=== PATIENT | female | born 1965 | race Two or more races ===

== ENCOUNTER 2024-12-22 15:20 | Emergency (ER) | payer MEDICAID, OTHER ==
[~2024-12-22] VITALS: Ht 152.4 cm; Wt 75.0 kg
[2024-12-22 15:25] VITALS: TEMP 98.9
[2024-12-22] MEDS: KETOROLAC TROMETH 60MG/2ML VIAL IM ONE (17:00)
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
[2024-12-22 17:50] VITALS: BP 153/76; PULSE 74; RESP 18; O2SAT 98
--- NOTE | 2024-12-22 18:01 | DVH ---
EXAM: CT CERVICAL WITHOUT CONTRAST INDICATION: [facility] EXAM DATE: 12/22/2024 05:17 PM COMPARISON: None TECHNIQUE: Multiple axial CT images of the cervical spine were obtained using bone algorithm. Axial a nd coronal reformatting was done. Bone and soft tissue windows were reviewed. Radiation Dose Information: CT Dose: CTDI volume is 22.13 mGy. Dose-length product is 565.24 mGy*cm FINDINGS: 7 [id number] cervical type vertebra. Mild reversal of the cervical lordosis. Vertebral body heig hts are relatively maintained. No evidence of acute traumatic fractures or spondylolisthesis. Grade 1 anterolisthesis of C4 on C5. [id number] left-sided neural foramina stenosis at C4-C5, moderate to severe Bilateral neural fo ramina stenosis at C5-C6 from uncovertebral hypertrophy and facet osteoarthritis. Mild spinal canal s tenosis at C5-C6. The thyroid gland is unremarkable. The lung apices are clear. Right maxillary teeth with dental lizbeth s. IMPRESSION: No evidence of acute cervical spine fracture . Grade 1 anterolisthesis of C4 on C5 of unknown chronic ity All CT scans at this medical facility are performed using dose modulation techniques as appropriate t o a performed exam including the following: Automated exposure control was utilized; adjustment of th e MA and/or KV according to patient size; and use of iterative reconstruction technique.
[2024-12-22] MEDS ORDERED: DICL50TA2 PO (18:22)
[2024-12-22] MEDS ORDERED: CYCL-839 PO (18:22)
== END 2024-12-22 18:30 | disposition home or self-care (01) ==
LOC: EDBD 15:20 → ER 15:20
DX: S30.0XXA Contusion of lower back and pelvis, initial encounter (principal); S29.9XXA Unspecified injury of thorax, initial encounter; M62.838 Other muscle spasm; E11.9 Type 2 diabetes mellitus without complications; V89.2XXA Person injured in unspecified motor-vehicle accident, traffic, initial encounter; Y93.89 Activity, other specified; Y92.488 Other paved roadways as the place of occurrence of the external cause; Y99.8 Other external cause status
CPT/HCPCS: 71046; 72100; 72125; 96372; 99285; J1885